=== PATIENT | female | born 1960 | race Caucasian/White ===

== ENCOUNTER 2022-07-05 21:52 | Emergency (ER) | payer MEDICAID, OTHER ==
[~2022-07-05] VITALS: Ht 170.2 cm; Wt 64.7 kg
[2022-07-05 22:24] VITALS: BP 153/94
[2022-07-05] MEDS ORDERED: acetaminophen w/codeine (30MG) #3 tablet PO ONE (23:40)
[2022-07-05] MEDS ORDERED: neomy sulf/polymyx B sulf/HC 10ml otic suspension RIGHT EAR ONE (23:40)
== END 2022-07-06 01:23 | disposition home or self-care (01) ==
LOC: ER 21:53
DX: H60.391 Other infective otitis externa, right ear (principal); Z88.2 Allergy status to sulfonamides
CPT/HCPCS: 69210; 99284